=== PATIENT | female | born 1940 | race Caucasian/White ===

== ENCOUNTER 2018-01-24 10:57 | Outpatient (CLI) | payer OTHER | END 2018-01-24 11:10 | disposition home or self-care (01) | LOC: LAB 10:57 | DX: D63.1 Anemia in chronic kidney disease (principal); N18.4 Chronic kidney disease, stage 4 (severe); G30.0 Alzheimer's disease with early onset; D68.8 Other specified coagulation defects; D05.01 Lobular carcinoma in situ of right breast; D35.1 Benign neoplasm of parathyroid gland; R97.0 Elevated carcinoembryonic antigen [CEA] ==

== ENCOUNTER 2018-06-19 14:43 | Inpatient (IN) | payer OTHER ==
[~2018-06-19] VITALS: Ht 149.9 cm; Wt 62.1 kg
[2018-06-19] MEDS ORDERED: COZAAR25 MG (15:35)
== END 2018-06-21 12:44 | disposition home or self-care (01) | DRG 300 ==
LOC: ER 14:43 → SEC-K 06-20 11:19 → MEDJ 06-20 17:21 → SEC-K 06-20 20:26 → MEDJ 06-20 20:53
PROVIDERS: ADMIT Internal Medicine
DX: I82.492 Acute embolism and thrombosis of other specified deep vein of left lower extremity (principal); N17.8 Other acute kidney failure; I12.9 Hypertensive chronic kidney disease with stage 1 through stage 4 chronic kidney disease, or unspecified chronic kidney disease; N18.9 Chronic kidney disease, unspecified